=== PATIENT | female | born 1990 | race African-American/Black ===

== ENCOUNTER → 2017-05-22 | Outpatient (CLI) | payer OTHER ==
--- NOTE | ~2017-05-22 | S ---
[facility] [place] [address] [address] SURGICAL PATH RPT PROCEDURE Name: TAMERA MAYORGA Room #: REG [facility] M..#: [id number] Admission: 05/22/17 Date of : 88 Discharge: Report #: [id number] Path Case #: [id number] PATHOLOGY REPORT COLLECTION DATE: 05/22/2017 RECEIVED DATE: 05/22/2017 SUBMITTING PHYS: Dr. Owen Valle OTHER PHYS: Dr. Ashish Gallegos SPECIMEN(S) RECEIVED: A.Gastritis biopsy * * * * * * * * * * * * FINAL DIAGNOSIS: Stomach, biopsy: - Mild chronic inactive gastritis. - An H. Pylori immunostain is negative (Block A1; appropriately reactive control). PATHOLOGIST: Sam Gastelum M.D. REPORT ELECTRONICALLY SIGNED BY: Sam Gastelum M.D. DATE/TIME: 05/23/2017 11:19 * * * * * * * * * * * * GROSS PATHOLOGY: The specimen is received in formalin, labeled "Tamera Mayorga and biopsy of gastritis", are multiple irregular fragment of kline soft tissue ranging from 0.2 up to 0.5 cm in greatest dimension and measuring 0.7 x 0.5 x 0.2 cm in aggregate. Entirely submitted in A1. (SWS; 05/22/2017) CLINICAL HISTORY: Nausea, vomiting, gastritis INITIAL CPT CODE(S): A; 07191, 40101 Professional services performed by [facility] at [facility] [place] [address] [address] Technical services performed by [facility] at [address] [place] [address], [address], [place] [address]. [facility] [address] [place] [address] SURGICAL PATH RPT PROCEDURE Name: TAMERA MAYORGA Room #: REG [facility] Low#: [id number] Admission: 05/22/17 Date of : 88 Discharge: Report #: [id number] Path Case #: [id number] [facility] [address] [address] PHONE: [phone] DIRECTOR: Ariel Ozuna M.D. * * * END OF REPORT * * *
--- NOTE | ~2017-05-22 | P ---
[facility] [place] [address] PROCEDURE REPORT Name: TAMERA GLEASON Room #: REG [facility]#: [id number] Admission: 05/22/17 Attend Phys: Owen Valle MD Discharge: Date of : 88 Report #: [id number] THIS REPORT FOR: //name// CC: Owen Gallegos MD BRIEF HISTORY: The patient is a 27-year-old woman who has had 4-6 months of nausea and vomiting. She has not had hematemesis. She has not had significant abdominal pain. She had abrupt onset of symptoms. She does have chronic kidney disease, but has been on dialysis for a year and a half. She reports she had no nausea, vomiting prior to institution of dialysis. She reports she has also lost 15 pounds because she does not have any appetite. PREOPERATIVE DIAGNOSES: Nausea, vomiting, anorexia and weight loss. POSTOPERATIVE DIAGNOSES: 1. Grade B esophagitis. 2. Diffuse erythematous gastritis. 3. Retained solids and liquids suggestive of gastroparesis. MEDICATIONS: Deep sedation with propofol per anesthesia. SPECIMEN: Biopsies of gastritis. ESTIMATED BLOOD LOSS: 3 mL. PROCEDURE: EGD with biopsy. FINDINGS: Prior to propofol sedation, procedure of upper endoscopy was discussed with the patient as well as potential risks, benefits, and complications. She indicates she understands and desires to proceed. DESCRIPTION OF PROCEDURE: With the patient in left lateral decubitus position, the Fuji video endoscope was inserted in the cervical esophagus under direct vision without difficulty. Examination of this organ through its entire length revealed normal esophageal mucosa down to the squamocolumnar junction. The mucosa down the squamocolumnar junction was normal. However, right the squamocolumnar junction, several erosions were seen. These are consistent with esophagitis. However, it is not clear whether these erosions or secondary vomiting or related to reflux disease. There is no evidence of [place] mucosa. No strictures or masses were seen. A significant hiatus hernia was not seen. Scope was advanced into the stomach, which was examined on end view as well as retroflexed views. Upon entering the stomach, there was about 300-400 mL of cloudy liquid material, we were able to suction most of this material out with the scope, but due to retained particulate matter, not all of it could be [facility] [address] [place] [address] PROCEDURE REPORT Name: TAMERA GLEASON Room #: REG [facility] Low#: [id number] Admission: 05/22/17 Attend Phys: Owen Valle MD Discharge: Date of : 88 Report #: [id number] removed. All the solids were removed, but removed. Examination of the stomach on end view as well as retroflexed views revealed normal mucosa in the proximal stomach. No mass lesions were seen. Upon retroflexion, no abnormalities were seen. Examination of distal stomach revealed diffuse erythema, no ulcers or erosions were seen. Examination of the pylorus revealed to be normal. There is no evidence of pyloric obstruction. Duodenal bulb and postbulbar sweep down third portion was inspected and noted to be unremarkable. At that point, the scope was slowly withdrawn and careful circumferential views confirmed the above findings. The patient tolerated the procedure well. CONDITION OF THE PATIENT UPON DISCHARGE: Following procedure, the patient drowsy, aroused, conversant and will be discharged home when fully ambulatory. INSTRUCTIONS TO THE PATIENT AND FAMILY AT THE TIME OF DISCHARGE: We will follow up on the path obtained today. However, since she had been fasting, had retained solids and liquids in the stomach, we will proceed with gastric emptying study. I do not see endoscopic evidence of outlet obstruction. She does have esophagitis with placement of proton pump inhibitor. The patient did have an emergency room visit and was given something for her stomach, but she does not recall the name of this particular medicine. We will start her on omeprazole 20 mg daily; and have her check on the other medicine to make sure that we are not duplicating anything. <ELECTRONICALLY SIGNED> By: Owen Valle MD 05/22/17 1949 [id number] Owen Valle MD /nt
== END | disposition home or self-care (01) ==
LOC: GI 08:47
DX: K29.50 Unspecified chronic gastritis without bleeding (principal); K31.84 Gastroparesis; K20.8 Other esophagitis; N18.9 Chronic kidney disease, unspecified; Z99.2 Dependence on renal dialysis; Z98.890 Other specified postprocedural states
CPT/HCPCS: 62110; 62900

== ENCOUNTER → 2017-05-30 | Outpatient (CLI) | payer OTHER | LOC: NUC 10:59 | DX: R68.81 Early satiety (principal); R11.0 Nausea ==